=== PATIENT | male | born 1940 | race Caucasian/White ===

== ENCOUNTER 2018-06-10 06:28 | Day surgery (SDC) | payer MEDICARE, OTHER ==
[~2018-06-10] VITALS: Ht 177.8 cm; Wt 98.7 kg
[~2018-06-10 06:28] MED LIST: ASPIRIN 32325 MG/TAB PO; ASPIRIN E.C. 8181 MG PO; METOPROLOL TART25 MG PO; NORCO 325 MG-51 TAB PO
[2018-06-10 07:00] VITALS: BP 153/66; PULSE 56; TEMP 97.1
--- NOTE | 2018-06-10 07:10 | NUR ---
TO RM AT 0634- CALL LIGHT IN REACH AND SON AT BEDSIDE.
[2018-06-10 09:25] VITALS: BP 129/76; PULSE 54; TEMP 97.6
--- NOTE | 2018-06-10 09:25 | NUR ---
TO RM 6 PER CART FROM [facility].. ALERT ORIENTED X3, TALKING TO STAFF AND FAMILY. DRESSINGS OVER INCISION AND COVERED WITH KIET. DUE TO BLOCK UNABLE TO MOVE ARM. DENIES PAIN OR DISCOMOFORT. LEFT ARM ELEVATED ON PILLOWS WITH ICE. RECEIVED CRANBERRY JUICE.
[2018-06-10 09:40] VITALS: BP 138/62; PULSE 52
--- NOTE | 2018-06-10 09:40 | NUR ---
DRANK 100% AND TOLERATED WELL.
[2018-06-10 09:55] VITALS: BP 158/65; PULSE 50
--- NOTE | 2018-06-10 09:55 | NUR ---
RECEIVED MUFFIN AND 2ND CUP OF JUICE.
[2018-06-10 10:10] VITALS: BP 158/75; PULSE 49
--- NOTE | 2018-06-10 10:10 | NUR ---
ATE 100% OF MUFFIN AND JUICE.
--- NOTE | 2018-06-10 10:20 | NUR ---
SLING FROM HOME APPLIED TO LEFT ARM. UP AMBULATED TO BATHROOM. VOIDED AND TOLERATED WELL. RECEIVED DISCHARGE INSTRUCTIONS AND VERBALIZED UNDERSTANDING. SIGNED DISCHARGE INSTRUCTIONS. PATIENT AND UNDERSTOOD TO KEEP CLEAN AND DRY TILL FOLLOW UP. IV DISCONTINUED BY STUDENT NURSE (ARUN) OFFERED TO ASSIST PATIENT DRESSED, REFUSED STATED HIS COULD HELP.
--- NOTE | 2018-06-10 10:30 | NUR ---
DISCHARGED PER WC BY NURSING STAFF TO PRIVATE CAR IN CARE OF -FLIP.
== END 2018-06-10 10:40 | disposition home or self-care (01) ==
LOC: SDCO 06:28
DX: M18.12 Unilateral primary osteoarthritis of first carpometacarpal joint, left hand (principal); Z86.73 Personal history of transient ischemic attack (TIA), and cerebral infarction without residual deficits; Z87.891 Personal history of nicotine dependence; Z79.82 Long term (current) use of aspirin; Z87.74 Personal history of (corrected) congenital malformations of heart and circulatory system
CPT/HCPCS: C1713; J0690; J2250; J2704; J3010; J7120

== ENCOUNTER 2019-03-13 13:20 | Emergency (ER) | payer MEDICARE, OTHER ==
[~2019-03-13] VITALS: Ht 177.8 cm; Wt 100.0 kg
[2019-03-13 13:27] VITALS: BP 137/65; TEMP 98.2
[2019-03-13] MEDS ORDERED: PLAVIX 75MG TAB75 MG PO (13:31)
[2019-03-13 14:45] VITALS: PULSE 68
== END 2019-03-13 14:45 | disposition home or self-care (01) ==
LOC: COL.ER 13:20
DX: S61.210A Laceration without foreign body of right index finger without damage to nail, initial encounter (principal); Z87.891 Personal history of nicotine dependence; Z90.89 Acquired absence of other organs; Z98.890 Other specified postprocedural states; Z79.02 Long term (current) use of antithrombotics/antiplatelets; W29.0XXA Contact with powered kitchen appliance, initial encounter; Y92.009 Unspecified place in unspecified non-institutional (private) residence as the place of occurrence of the external cause

== ENCOUNTER → 2019-03-21 | Outpatient (CLI) | payer MEDICARE, OTHER ==
[~2019-03-21] MED LIST changes: +PLAVIX 75MG TAB75 MG PO
[2019-03-21 10:37] VITALS: BP 121/58; PULSE 77; TEMP 97.5
== END ==
LOC: COL.ER 10:24
DX: S61.211D Laceration without foreign body of left index finger without damage to nail, subsequent encounter (principal); X58.XXXD Exposure to other specified factors, subsequent encounter

== ENCOUNTER → 2021-04-18 | Outpatient (CLI) | payer MEDICARE | LOC: COL.RAD 15:27 | DX: N28.1 Cyst of kidney, acquired (principal); N40.0 Benign prostatic hyperplasia without lower urinary tract symptoms; K76.9 Liver disease, unspecified; Z90.49 Acquired absence of other specified parts of digestive tract ==

== ENCOUNTER 2022-02-12 15:34 | Emergency (ER) | payer MEDICARE ==
[~2022-02-12] VITALS: Ht 177.8 cm; Wt 100.9 kg
[2022-02-12 15:39] VITALS: TEMP 97.8
[2022-02-12 16:45] VITALS: BP 134/79; PULSE 66
== END 2022-02-12 16:45 | disposition home or self-care (01) ==
LOC: COL.ER 15:34
DX: S61.214A Laceration without foreign body of right ring finger without damage to nail, initial encounter (principal); Z23 Encounter for immunization; W26.8XXA Contact with other sharp object(s), not elsewhere classified, initial encounter

== ENCOUNTER 2023-10-29 17:10 | Emergency (ER) | payer MEDICARE ==
[~2023-10-29] VITALS: Ht 175.3 cm; Wt 102.3 kg
[2023-10-29 17:18] VITALS: TEMP 98.2
[2023-10-29 18:55] VITALS: BP 154/76; PULSE 79
== END 2023-10-29 18:56 | disposition home or self-care (01) ==
LOC: COL.ER 17:10
DX: S40.011A Contusion of right shoulder, initial encounter (principal); S50.812A Abrasion of left forearm, initial encounter; S06.2X0A Diffuse traumatic brain injury without loss of consciousness, initial encounter; Z79.02 Long term (current) use of antithrombotics/antiplatelets; W20.8XXA Other cause of strike by thrown, projected or falling object, initial encounter